=== PATIENT | male | born 2000 | race African-American/Black ===

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

== ENCOUNTER 2022-01-25 11:58 | Inpatient (IN) | payer SELFPAY ==
[~2022-01-25] VITALS: Ht 172.7 cm; Wt 71.7 kg
[2022-01-25] VITALS (7 sets, daily range): BP systolic 88–115; BP diastolic 52–95
[2022-01-25] MEDS ORDERED: SODIUM CHLORIDE 0.9% 1000ML 1,000 ML IV ONE ×2 (12:45→14:30)
[2022-01-25] MEDS ORDERED: SODIUM CHLORIDE 0.9% 1000ML 1,000 ML ONE ×2 (12:56→14:46)
[2022-01-25 12:58] LABS: BASOPHILS % 0.2 % (0.0-1.0); HEMATOCRIT 50.9 % (38.2-49.6); HEMOGLOBIN 16.7 g/dL (14.0-18.0); LYMPHOCYTES # (AUTO) 0.9 (1.0-3.2); LYMPHOCYTES % 10.9 % (18.0-39.1); MEAN CORPUSCULAR HEMOGLOBIN 27.6 pg (28-32); MEAN CORPUSCULAR HGB CONC 32.8 g/dL (31-35); MEAN CORPUSCULAR VOLUME 84.3 fL (81-99); MONOCYTES # (AUTO) 0.1 (0.2-0.8); MONOCYTES % 1.1 % (4.4-11.3); NEUTROPHILS # (AUTO) 7.2 (2.1-6.9); NEUTROPHILS % 87.3 % (38.7-80.0); PLATELET COUNT 366 x10e3/uL (140-360); RED BLOOD COUNT 6.04 x10e6/uL (4.3-5.7); RED CELL DISTRIBUTION WIDTH 12.7 % (11.7-14.4)
[2022-01-25 13:22] LABS: ALBUMIN 4.6 g/dL (3.5-5.0); ALBUMIN/GLOBULIN RATIO 0.9 (0.8-2.0); ANION GAP 33.6 mmol/L (8-16); CALCIUM 10.4 mg/dL (8.4-10.2); CREATININE, SERUM 1.69 mg/dL (0.72-1.25); POTASSIUM 5.6 mmol/L (3.5-5.1)
[2022-01-25] MEDS ORDERED: SODIUM CHLORIDE 0.9% 1000ML 1,000 ML IV STA (13:29)
[2022-01-25] MEDS ORDERED: INSULIN REGULAR, HUMAN 100 UNIT/1 ML IV ONE (13:30)
[2022-01-25 14:21] LABS: CLARITY,URINE CLEAR (CLEAR); COLOR,URINE YELLOW (YELLOW)
[2022-01-25 14:22] LABS: AMPHETAMINES SCREEN,URINE NEGATIVE (NEGATIVE); BENZODIAZEPINES SCREEN,URINE NEGATIVE (NEGATIVE); KETONES,URINE >=160 (NEGATIVE); LEUKOCYTE ESTERASE ,URINE NEGATIVE (NEGATIVE); NITRITE,URINE NEGATIVE (NEGATIVE); PHENCYCLIDINE SCREEN,URINE NEGATIVE (NEGATIVE); PROTEIN,URINE DIPSTICK TRACE (NEGATIVE); URINE UROBILINOGEN 0.2 mg/dL (0.2 - 1)
[2022-01-25] MEDS ORDERED: POTASSIUM CHLORIDE 20MEQ/100ML 200 ML IV PRN (14:30)
[2022-01-25] MEDS ORDERED: MAGNESIUM SULF 1GRAM/DEXTROSE 100 ML IV PRN (14:30)
[2022-01-25 14:39] LABS: ABG PCO2 30 mmHg (35-45); ABG PH 7.18 (7.35-7.45); ABG PO2 121 mmHg (80-105)
[2022-01-25 14:40] LABS: ABG HCO3 11 mmol/L (22-26); ABG TCO2 12
[2022-01-25] MEDS ORDERED: SODIUM CHLORIDE 0.9% 100 ML ONE (14:46)
[2022-01-25] MEDS: INSULIN REGULAR, HUMAN 3ML VL 100 UNIT in SODIUM CHLORIDE 0.9% 99 ML IV SCH ×2 (15:10)
[2022-01-25] MEDS ORDERED: ONDANSETRON HCL INJ 2MG/ML 2ML 2 MG/ML VIAL IV PRN (15:15)
[2022-01-25 15:16] LABS: ANION GAP 25.9 mmol/L (8-16); CALCIUM 9.4 mg/dL (8.4-10.2); CREATININE, SERUM 1.37 mg/dL (0.72-1.25); MAGNESIUM 2.2 MG/DL (1.3-2.1); POTASSIUM 4.9 mmol/L (3.5-5.1)
[2022-01-25] MEDS: SODIUM CHLORIDE 0.9% 1000ML 1,000 ML IV SCH ×3 (16:09→22:30)
[2022-01-25 16:51] LABS: ANION GAP 24.9 mmol/L (8-16); CALCIUM 8.9 mg/dL (8.4-10.2); CREATININE, SERUM 1.24 mg/dL (0.72-1.25); MAGNESIUM 1.9 MG/DL (1.3-2.1); POTASSIUM 4.9 mmol/L (3.5-5.1)
[2022-01-25] MEDS: DEXTROSE 5%/0.45% SOD CHL 1,000 ML IV SCH (17:06)
[2022-01-25 18:54] LABS: ANION GAP 15.1 mmol/L (8-16); CALCIUM 8.4 mg/dL (8.4-10.2); CREATININE, SERUM 1.19 mg/dL (0.72-1.25); MAGNESIUM 1.9 MG/DL (1.3-2.1); POTASSIUM 5.1 mmol/L (3.5-5.1)
[2022-01-26] VITALS (17 sets, daily range): BP systolic 94–156; BP diastolic 45–133
[2022-01-26 00:41] LABS: ANION GAP 10.6 mmol/L (8-16); CALCIUM 8.1 mg/dL (8.4-10.2); CREATININE, SERUM 1.14 mg/dL (0.72-1.25); MAGNESIUM 1.6 MG/DL (1.3-2.1)
[2022-01-26 00:46] LABS: POTASSIUM 3.6 mmol/L (3.5-5.1)
[2022-01-26] MEDS: DEXTROSE 5%/0.45% SOD CHL 1,000 ML IV SCH (00:47)
[2022-01-26] MEDS: INSULIN REGULAR, HUMAN 3ML VL 100 UNIT in SODIUM CHLORIDE 0.9% 99 ML IV SCH ×2 (00:47)
[2022-01-26] MEDS: SODIUM CHLORIDE 0.9% 1000ML 1,000 ML IV SCH ×2 (00:47→04:04)
[2022-01-26] MEDS ORDERED: MAGNESIUM SULF 1GRAM/DEXTROSE 100 ML IV ONE (01:16)
[2022-01-26 04:15] LABS: BASOPHILS % 0.4 % (0.0-1.0); EOSINOPHILS # (AUTO) 0.1 (0.0-0.4); HEMATOCRIT 39.3 % (38.2-49.6); LYMPHOCYTES # (AUTO) 3.7 (1.0-3.2); LYMPHOCYTES % 46.4 % (18.0-39.1); MEAN CORPUSCULAR HEMOGLOBIN 27.4 pg (28-32); MEAN CORPUSCULAR HGB CONC 33.1 g/dL (31-35); MEAN CORPUSCULAR VOLUME 82.7 fL (81-99); MONOCYTES # (AUTO) 0.6 (0.2-0.8); MONOCYTES % 7.4 % (4.4-11.3); NEUTROPHILS # (AUTO) 3.5 (2.1-6.9); NEUTROPHILS % 44.5 % (38.7-80.0); PLATELET COUNT 329 x10e3/uL (140-360); RED BLOOD COUNT 4.75 x10e6/uL (4.3-5.7); RED CELL DISTRIBUTION WIDTH 12.8 % (11.7-14.4)
[2022-01-26 04:29] LABS: ALBUMIN/GLOBULIN RATIO 0.9 (0.8-2.0); ANION GAP 10.8 mmol/L (8-16); CREATININE, SERUM 0.92 mg/dL (0.72-1.25)
[2022-01-26 04:34] LABS: POTASSIUM 2.8 mmol/L (3.5-5.1)
[2022-01-26 04:35] LABS: ALBUMIN 3.1 g/dL (3.5-5.0)
[2022-01-26] MEDS ORDERED: DEXTROSE 50% SYRINGE 50 ML IV PRN (04:45)
[2022-01-26] MEDS ORDERED: POTASSIUM CHLORIDE 20MEQ/100ML 200 ML IV PRN ×2 (05:15→11:45)
[2022-01-26] MEDS: INSULIN REGULAR, HUMAN 100 UNIT/1 ML SQ SCH ×2 (07:39→12:05)
[2022-01-26] MEDS ORDERED: SODIUM CHLORIDE 0.9% 250ML 250 ML ONE (09:37)
[2022-01-26 11:07] LABS: ANION GAP 12.4 mmol/L (8-16); CREATININE, SERUM 0.87 mg/dL (0.72-1.25); MAGNESIUM 1.8 MG/DL (1.3-2.1); POTASSIUM 4.4 mmol/L (3.5-5.1)
[2022-01-26] MEDS ORDERED: MAGNESIUM SULF 1GRAM/DEXTROSE 100 ML IV PRN (11:45)
[2022-01-26] MEDS ORDERED: INSULIN REGULAR, HUMAN 3ML VL 100 UNIT in SODIUM CHLORIDE 0.9% 100 ML IV SCH ×2 (11:45)
[2022-01-26] MEDS ORDERED: DEXTROSE 5%/0.45% SOD CHL 1,000 ML IV SCH (11:45)
[2022-01-26] MEDS ORDERED: SODIUM CHLORIDE 0.9% 1000ML 1,000 ML IV SCH (11:45)
[2022-01-26] MEDS ORDERED: INSULIN GLARGINE 100 UNITS/ML VIAL SQ SCH (21:00)
== END 2022-01-26 14:13 | disposition home or self-care (01) | DRG 638 ==
LOC: ER 13:29 → ERHOLD 15:03 → ICU 19:07
PROVIDERS: ADMIT Internal Medicine; ATTEND Internal Medicine
DX: E10.10 Type 1 diabetes mellitus with ketoacidosis without coma (principal); N17.9 Acute kidney failure, unspecified; Z79.4 Long term (current) use of insulin; Z20.822 Contact with and (suspected) exposure to COVID-19
CPT/HCPCS: 36415; 71045; 80048; 80053; 80307; 81001; 82805; 82948; 83036; 83735; 85025; 87040; 87086; 93005; 94799; 96372; 99284; J1817; J3475; J3480; J7030; J7050; J7799; U0002

== ENCOUNTER 2023-07-23 21:35 | Inpatient (IN) | payer BC ==
[~2023-07-23] VITALS: Ht 172.7 cm; Wt 73.3 kg
[2023-07-23] MEDS ORDERED: SODIUM CHLORIDE 0.9% 1000ML 1,000 ML ONE (22:13)
[2023-07-23] MEDS ORDERED: FAMOTIDINE 20 MG/2 ML VIAL IV STA (22:48)
[2023-07-23] MEDS ORDERED: DIPHENHYDRAMINE HCL INJ 50 MG/ML VIAL ONE (22:54)
[2023-07-23] MEDS ORDERED: DEXAMETHASONE SOD PHOS INJ 4 MG/ML SDV ONE (22:54)
[2023-07-23] MEDS ORDERED: FAMOTIDINE 20 MG/2 ML VIAL IV ONE (22:54)
[2023-07-23] MEDS ORDERED: SODIUM CHLORIDE 0.9% 1000ML 1,000 ML IV ONE (23:00)
[2023-07-23] MEDS ORDERED: DEXAMETHASONE PHOS 4MG/ML 5ML MULTIDOSE VIAL IV ONE (23:00)
[2023-07-23] MEDS ORDERED: DIPHENHYDRAMINE HCL INJ 50 MG/ML VIAL IV ONE (23:00)
[2023-07-23] MEDS ORDERED: DEXAMETHASONE SOD PHOS INJ 4 MG/ML SDV IV ONE (23:15)
[2023-07-24] VITALS (7 sets, daily range): BP systolic 111–142; BP diastolic 57–82; PULSE 70–88; RESP 17–20; TEMP 97.5–98.9; O2SAT 97–100
[2023-07-24] MEDS ORDERED: DEXTROSE 50% SYRINGE 50 ML IV PRN ×2 (01:45)
[2023-07-24] MEDS ORDERED: DIPHENHYDRAMINE HCL INJ 50 MG/ML VIAL IV PRN (01:45)
[2023-07-24] MEDS ORDERED: ONDANSETRON HCL INJ 2MG/ML 2ML 2 MG/ML VIAL IV PRN (01:45)
[2023-07-24] MEDS ORDERED: SODIUM CHLORIDE FLUSH 10 ML SYR INJ PRN (01:45)
[2023-07-24] MEDS: SODIUM CHLORIDE 0.9% 1000ML 1,000 ML IV SCH ×3 (04:09→22:17)
[2023-07-24] MEDS ORDERED: HYDRALAZINE HCL 20 MG/ML VIAL IV PRN (07:30)
[2023-07-24] MEDS ORDERED: INSULIN LISPRO 100 UNIT/1 ML 3ML VIAL SQ SCH ×2 (07:30)
[2023-07-24] MEDS ORDERED: ACETAMINOPHEN 325 MG TAB PO PRN (07:30)
[2023-07-24] MEDS: INSULIN LISPRO 100 UNIT/1 ML 3ML VIAL SQ SCH ×7 (08:30→21:00)
[2023-07-24] MEDS: FAMOTIDINE 20 MG/2 ML VIAL IV SCH ×2 (08:32→17:32)
[2023-07-24] MEDS: LORATADINE 10 MG TAB PO SCH (08:32)
[2023-07-24] MEDS: POLYETHYLENE GLYCOL 3350 17 GM PACK PO SCH (08:32)
[2023-07-24] MEDS ORDERED: INSULIN GLARGINE 100 UNITS/ML VIAL SQ SCH ×2 (09:00→21:00)
[2023-07-24] MEDS ORDERED: PREDNISONE 10 MG TAB PO SCH (09:00)
[2023-07-24 15:15] LABS: FREE T4 (FREE THYROXINE) 1.01 ng/dL (0.8-1.8); THYROID STIMULATING HORMONE 0.302 uIU/mL (0.350-4.940)
[2023-07-24] MEDS: INSULIN GLARGINE 100 UNITS/ML VIAL SQ SCH ×2 (15:55→21:00)
[2023-07-24] MEDS: MELATONIN 3 MG TAB PO SCH (20:44)
[2023-07-25] VITALS (7 sets, daily range): BP systolic 113–132; BP diastolic 60–86; PULSE 67–76; RESP 16–20; TEMP 97.4–98.6; O2SAT 99–100
[2023-07-25 06:14] LABS: BASOPHILS % 0.1 % (0.0-1.0); EOSINOPHILS # (AUTO) 0.1 (0.0-0.4); EOSINOPHILS % 0.9 % (0.0-6.0); HEMATOCRIT 34.3 % (38.2-49.6); HEMOGLOBIN 11.3 g/dL (14.0-18.0); LYMPHOCYTES # (AUTO) 1.7 (1.0-3.2); LYMPHOCYTES % 25.6 % (18.0-39.1); MEAN CORPUSCULAR HEMOGLOBIN 27.8 pg (28-32); MEAN CORPUSCULAR HGB CONC 32.9 g/dL (31-35); MEAN CORPUSCULAR VOLUME 84.3 fL (81-99); MONOCYTES # (AUTO) 0.3 (0.2-0.8); MONOCYTES % 4.3 % (4.4-11.3); NEUTROPHILS # (AUTO) 4.6 (2.1-6.9); NEUTROPHILS % 68.8 % (38.7-80.0); PLATELET COUNT 306 x10e3/uL (140-360); RED BLOOD COUNT 4.07 x10e6/uL (4.3-5.7); RED CELL DISTRIBUTION WIDTH 12.3 % (11.7-14.4); WHITE BLOOD COUNT 6.67 x10e3/uL (4.8-10.8)
[2023-07-25 06:44] LABS: ALBUMIN 2.6 g/dL (3.5-5.0); ALBUMIN/GLOBULIN RATIO 0.9 (0.8-2.0); CALCIUM 8.5 mg/dL (8.4-10.2); CREATININE, SERUM 0.91 mg/dL (0.72-1.25)
[2023-07-25] MEDS: PREDNISONE 20 MG TAB PO SCH (08:10)
[2023-07-25] MEDS: LORATADINE 10 MG TAB PO SCH (08:10)
[2023-07-25] MEDS: FAMOTIDINE 20 MG/2 ML VIAL IV SCH ×2 (08:10→17:46)
[2023-07-25] MEDS: POLYETHYLENE GLYCOL 3350 17 GM PACK PO SCH (08:10)
[2023-07-25] MEDS: SODIUM CHLORIDE 0.9% 1000ML 1,000 ML IV SCH ×2 (08:11→17:46)
[2023-07-25] MEDS: INSULIN GLARGINE 100 UNITS/ML VIAL SQ SCH ×2 (08:24→17:54)
[2023-07-25] MEDS: INSULIN LISPRO 100 UNIT/1 ML 3ML VIAL SQ SCH ×7 (08:25→20:39)
[2023-07-25] MEDS ORDERED: ONDANSETRON HCL 4 MG ORAL DISINTEGRATING TAB PO PRN (14:15)
[2023-07-25] MEDS: MELATONIN 3 MG TAB PO SCH (20:38)
[2023-07-26 00:01] VITALS: BP 120/72; PULSE 62; RESP 16; TEMP 97.5; O2SAT 100
[2023-07-26 04:00] VITALS: BP 123/75; PULSE 63; RESP 16; TEMP 97.7; O2SAT 100
[2023-07-26] MEDS: SODIUM CHLORIDE 0.9% 1000ML 1,000 ML IV SCH (05:00)
[2023-07-26] MEDS: INSULIN LISPRO 100 UNIT/1 ML 3ML VIAL SQ SCH ×4 (07:30→11:30)
[2023-07-26 08:00] VITALS: BP 123/75; PULSE 63; RESP 16; TEMP 97.7; O2SAT 100
[2023-07-26 08:53] VITALS: BP 119/85; PULSE 58; RESP 16; TEMP 97.7; O2SAT 100
[2023-07-26] MEDS: POLYETHYLENE GLYCOL 3350 17 GM PACK PO SCH (09:00)
[2023-07-26] MEDS: LORATADINE 10 MG TAB PO SCH (09:16)
[2023-07-26] MEDS: FAMOTIDINE 20 MG/2 ML VIAL IV SCH (09:16)
[2023-07-26] MEDS: PREDNISONE 20 MG TAB PO SCH (09:16)
[2023-07-26] MEDS: INSULIN GLARGINE 100 UNITS/ML VIAL SQ SCH (09:18)
[2023-07-26] MEDS ORDERED: ADMELOG100 UNIT/1 (10:32)
[2023-07-26] MEDS ORDERED: LANTUS 3ML100 UNITS/ (10:32)
[2023-07-26] MEDS ORDERED: LANTUS 3ML100 UNITS/ SC (11:47)
[2023-07-26] MEDS ORDERED: PREDNISONE10 MG PO (11:47)
[2023-07-26] MEDS ORDERED: Insulin Lispro SQ (11:47)
[2023-07-26 12:40] VITALS: BP 129/92; PULSE 77; RESP 16; TEMP 98.7; O2SAT 100
[2023-07-26] MEDS ORDERED: FAMOTIDINE 20 MG TAB PO SCH (16:30)
== END 2023-07-26 12:30 | disposition home or self-care (01) | DRG 638 ==
LOC: FSED 22:45 → ERHOLD 07-24 01:40 → MED/SURG2 07-24 03:24
PROVIDERS: ADMIT Internal Medicine; ATTEND Internal Medicine
DX: E10.649 Type 1 diabetes mellitus with hypoglycemia without coma (principal); G40.89 Other seizures; L50.9 Urticaria, unspecified; L29.9 Pruritus, unspecified; F90.9 Attention-deficit hyperactivity disorder, unspecified type; Z79.4 Long term (current) use of insulin; Z68.24 Body mass index [BMI] 24.0-24.9, adult
CPT/HCPCS: 36415; 71046; 80053; 81003; 82948; 83036; 83735; 84439; 84443; 85025; 96361; 99284; J1100; J1200; J1815; J7030; J7512; J7799